=== PATIENT | male | born 1950 | race Caucasian/White ===

== ENCOUNTER 2016-08-25 06:38 | Day surgery (SDC) | payer OTHER, MEDICARE ==
[~2016-08-25] VITALS: Ht 176.5 cm; Wt 111.7 kg
[~2016-08-25 06:38] MED LIST: COUMADIN5 MG PO; DIABETA 5MG5 MG/TAB PO; GLYBURIDE MICRON3 MG PO; HCTZ 25MG TAB25 MG PO; METFORMIN1000 MG PO; MOBIC15 MG PO; MULTIPLE VITAMI1 CAP PO; TENORMIN 5050 MG/TAB PO; TYLENOL 325MG325 MG PO; WARFARIN2 MG PO; ZESTRIL40 MG PO; ZOCOR40 MG PO
[2016-08-25] MEDS ORDERED: MOBIC 7.5MG7.5 MG PO (06:56)
[2016-08-25] MEDS ORDERED: ASPIRIN 81M81 MG/TA2 PO (06:57)
[2016-08-25] MEDS ORDERED: FLOMAX 0.40.4 MG/CAP PO (06:57)
[2016-08-25] MEDS ORDERED: LIPITOR20 MG PO (06:58)
[2016-08-25] MEDS ORDERED: LANTUS100 U/ML SQ (07:03)
[2016-08-25] MEDS ORDERED: LUTEIN20 M1 PO (07:04)
[2016-08-25] MEDS ORDERED: D-2000 90 MG-201 TAB PO (07:04)
[2016-08-25] MEDS ORDERED: NIACIN 64 MG-501 TA1 PO (07:05)
[2016-08-25] MEDS ORDERED: ALPHA LIPOIC ACID PO (07:06)
[2016-08-25] MEDS ORDERED: OSTEO-BI-FLEX 21 TAB PO (07:06)
[2016-08-25] MEDS ORDERED: KRILL OIL 3001 EACH PO (07:06)
[2016-08-25 07:25] VITALS: BP 138/81; PULSE 48; TEMP 97.7
[2016-08-25 08:40] VITALS: BP 137/73; PULSE 55; TEMP 98.4
[2016-08-25 08:55] VITALS: BP 140/65; PULSE 54
[2016-08-25 09:10] VITALS: BP 112/58; PULSE 47
== END 2016-08-25 09:30 | disposition home or self-care (01) ==
LOC: SDCO 06:38
DX: Z86.010 Personal history of colon polyps (principal); D12.5 Benign neoplasm of sigmoid colon; K63.5 Polyp of colon; E11.9 Type 2 diabetes mellitus without complications; Z79.4 Long term (current) use of insulin; I10 Essential (primary) hypertension; E78.00 Pure hypercholesterolemia, unspecified; K64.0 First degree hemorrhoids
CPT/HCPCS: OP; J2250; J3010; J7030

== ENCOUNTER 2021-04-29 19:51 | Emergency (ER) | payer MEDICARE, OTHER ==
[~2021-04-29] VITALS: Ht 175.3 cm; Wt 110.5 kg
[~2021-04-29 19:51] MED LIST changes: +ADALAT CC60 MG PO; +ALPHA LIPOIC ACID PO; +ASPIRIN 81M81 MG/TA2 PO; +CEPHALEXIN500 M1 PO; +D-2000 90 MG-201 TAB PO; +FLOMAX 0.40.4 MG/CAP PO; +KRILL OIL 3001 EACH PO; +LANTUS100 U/ML SQ; +LIPITOR20 MG PO; +LUTEIN20 M1 PO; +MICARDIS40 MG PO; +MOBIC 7.5MG7.5 MG PO; +NIACIN 64 MG-501 TA1 PO; +OSTEO-BI-FLEX 21 TAB PO; +TRULICITY1.5 MG/0.5 SQ
[2021-04-29 20:51] LABS: COLLECTION METHOD CLEAN CATCH
[2021-04-29 21:11] LABS: MUCOUS Present (NOT PRESENT); PH 5 (5-8); SQUAMOUS EPITHELIAL None Seen /hpf (0-10); URINE APPEARANCE Hazy (CLEAR/HAZY); URINE BACTERIA Rare /hpf (NONE SEEN); URINE BILIRUBIN Negative (NEGATIVE); URINE BLOOD 1+ (NEGATIVE); URINE COLOR Yellow (YELLOW); URINE GLUCOSE 2+ (NEGATIVE); URINE KETONE Trace (NEGATIVE); URINE LEUKOCYTE ESTERASE 3+ (NEGATIVE); URINE NITRATE Negative (NEGATIVE); URINE PROTEIN(semi-quant) 1+ (NEGATIVE); URINE UROBILINOGEN Negative (NEGATIVE)
[2021-04-29] MEDS ORDERED: OMNICEF 300MG300 MG PO (21:22)
[2021-04-29 22:34] VITALS: BP 135/69; PULSE 75; TEMP 98.6
== END 2021-04-29 22:34 | disposition home or self-care (01) ==
LOC: COL.ER 19:51
PROVIDERS: Physician Assistant
DX: N30.91 Cystitis, unspecified with hematuria (principal); E11.40 Type 2 diabetes mellitus with diabetic neuropathy, unspecified; N40.0 Benign prostatic hyperplasia without lower urinary tract symptoms; Z79.899 Other long term (current) drug therapy
CPT/HCPCS: J0696

== ENCOUNTER 2021-05-16 07:07 | Emergency (ER) | payer MEDICARE, OTHER ==
[~2021-05-16] VITALS: Ht 175.3 cm; Wt 109.5 kg
[~2021-05-16 07:07] MED LIST changes: +OMNICEF 300MG300 MG PO
[2021-05-16 07:12] VITALS: TEMP 98
[2021-05-16 07:39] LABS: COLLECTION METHOD CLEAN CATCH
[2021-05-16 07:49] LABS: PH 5 (5-8); SQUAMOUS EPITHELIAL 0-2 /hpf (0-10); URINE APPEARANCE Turbid (CLEAR/HAZY); URINE BACTERIA Rare /hpf (NONE SEEN); URINE BILIRUBIN Negative (NEGATIVE); URINE BLOOD 3+ (NEGATIVE); URINE COLOR Amber (YELLOW); URINE GLUCOSE Negative (NEGATIVE); URINE KETONE Negative (NEGATIVE); URINE LEUKOCYTE ESTERASE 3+ (NEGATIVE); URINE NITRATE Negative (NEGATIVE); URINE PROTEIN(semi-quant) 2+ (NEGATIVE); URINE RBC >50 /hpf (0-2); URINE UROBILINOGEN Negative (NEGATIVE)
[2021-05-16] MEDS ORDERED: CIPRO 500MG TA500 MG PO (08:21)
[2021-05-16 08:35] VITALS: BP 165/95; PULSE 86
== END 2021-05-16 08:35 | disposition home or self-care (01) ==
LOC: COL.ER 07:07
PROVIDERS: Family Medicine
DX: N30.00 Acute cystitis without hematuria (principal); Z87.440 Personal history of urinary (tract) infections; Z87.891 Personal history of nicotine dependence

== ENCOUNTER 2021-08-15 17:51 | Emergency (ER) | payer MEDICARE, OTHER ==
[~2021-08-15] VITALS: Ht 175.3 cm; Wt 105.5 kg
[~2021-08-15 17:51] MED LIST changes: +CIPRO 500MG TA500 MG PO
[2021-08-15 17:56] VITALS: TEMP 99.1
[2021-08-15] MEDS ORDERED: CEPHALEXIN500 M1 PO (18:31)
[2021-08-15] MEDS ORDERED: BACTRIM DS 8001 TAB PO (18:31)
[2021-08-15 20:07] VITALS: BP 188/83; PULSE 65
[2021-08-16] MEDS ORDERED: XARELTO STARTER20 MG PO (08:53)
== END 2021-08-15 20:16 | disposition home or self-care (01) ==
LOC: COL.ER 17:51
DX: L03.116 Cellulitis of left lower limb (principal); R60.0 Localized edema; Z28.310 Unvaccinated for COVID-19
CPT/HCPCS: J1650

== ENCOUNTER 2021-09-12 18:14 | Emergency (ER) | payer MEDICARE, OTHER ==
[~2021-09-12] VITALS: Ht 175.3 cm; Wt 105.5 kg
[~2021-09-12 18:14] MED LIST changes: +BACTRIM DS 8001 TAB PO; +XARELTO STARTER20 MG PO
[2021-09-12 18:46] VITALS: TEMP 97.7
[2021-09-12 19:53] LABS: BASO % 0.5 % (0.0-2.0); EOS % 11.8 % (0.0-4.0); GRAN # 4.7 K/mm3 (1.4-6.5); GRAN % 56.1 % (42.2-75.2); HEMATOCRIT 42.5 % (42.0-52.0); HEMOGLOBIN 14.5 g/dl (13.5-18.0); LYMPH # 1.9 K/mm3 (1.2-3.4); MEAN CELL VOLUME 87 fl (80.0-100.0); MEAN CORPUSCULAR HEMOGLOBIN 30 pg (27-31); MEAN CORPUSCULAR HGB CONC 34 g/dl (33.0-37.0); MEAN PLATELET VOLUME 10.4 fl (7.4-10.4); MONO # 0.7 K/mm3 (0.1-0.6); MONO % 8.1 % (1.7-9.3); PLATELET COUNT 184 K/mm3 (130-400); RED BLOOD COUNT 4.89 M/mm3 (4.20-5.60); REDCELL DISTRIBUTION WIDTH-CV 13.3 % (11.5-14.5)
[2021-09-12 20:07] LABS: ALBUMIN 3.6 gm/dL (3.4-4.8); CREATININE, serum 1.05 mg/dL (0.72-1.25); PHOSPHOROUS 3.2 mg/dL (2.3-4.7); POTASSIUM 4.3 mmol/L (3.5-4.5)
[2021-09-12 20:57] VITALS: BP 178/88; PULSE 68
== END 2021-09-12 20:59 | disposition home or self-care (01) ==
LOC: COL.ER 18:14
PROVIDERS: Emergency Medicine
DX: I87.2 Venous insufficiency (chronic) (peripheral) (principal); Z86.718 Personal history of other venous thrombosis and embolism; Z79.01 Long term (current) use of anticoagulants

== ENCOUNTER → 2022-03-12 | Outpatient (CLI) | payer MEDICARE, OTHER | LOC: COL.VAS 08:44 | DX: I82.432 Acute embolism and thrombosis of left popliteal vein (principal) ==

== ENCOUNTER 2023-10-22 21:03 | Emergency (ER) | payer MEDICARE, OTHER ==
[~2023-10-22] VITALS: Ht 172.7 cm; Wt 109.5 kg
[2023-10-22 21:10] VITALS: TEMP 97.9
[2023-10-22 21:47] LABS: BASO # 0.1 K/mm3 (0.0-0.2); BASO % 0.5 % (0.0-2.0); EOS # 0.2 K/mm3 (0.0-0.7); EOS % 2.5 % (0.0-4.0); GRAN # 6.4 K/mm3 (1.4-6.5); GRAN % 65.9 % (42.2-75.2); HEMATOCRIT 47.9 % (42.0-52.0); HEMOGLOBIN 16.3 g/dl (13.5-18.0); LYMPH # 2.1 K/mm3 (1.2-3.4); LYMPH % 21.6 % (20.0-51.0); MEAN CELL VOLUME 89 fl (80.0-100.0); MEAN CORPUSCULAR HEMOGLOBIN 30 pg (27-31); MEAN CORPUSCULAR HGB CONC 34 g/dl (33.0-37.0); MEAN PLATELET VOLUME 10.4 fl (7.4-10.4); MONO # 0.9 K/mm3 (0.1-0.6); MONO % 9.2 % (1.7-9.3); PLATELET COUNT 178 K/mm3 (130-400); RED BLOOD COUNT 5.36 M/mm3 (4.20-5.60); REDCELL DISTRIBUTION WIDTH-CV 13.2 % (11.5-14.5)
[2023-10-22] MEDS ORDERED: Iohexol 350 - 100 ML VIAL IV ONE (21:51)
[2023-10-22] MEDS ORDERED: NS 64 ML IV SCH (21:51)
[2023-10-22 21:52] LABS: INR 1.2 (0.8-3.0); PROTHROMBIN TIME 13.3 SECONDS (9.7-12.8)
[2023-10-22 21:55] LABS: PARTIAL THROMBOPLASTIN TIME 36.9 SECONDS (26.0-37.0)
[2023-10-22 22:04] LABS: ALBUMIN 4.3 g/dL (3.4-4.8); BILIRUBIN,TOTAL 0.4 mg/dL (0.2-1.2); CALCIUM 9.4 mg/dL (8.4-10.2); CREATININE, serum 1.34 mg/dL (0.72-1.25); POTASSIUM 4.4 mEq/L (3.5-4.5); TOTAL PROTEIN 7.4 g/dl (6.2-8.1)
[2023-10-22 22:13] LABS: TROPONIN-I 1.699 ng/mL (0.00-0.033)
[2023-10-22] MEDS ORDERED: Clopidogrel 300 MG DOSE (75 mg x 4 tabs) PO ONE (22:30)
[2023-10-22] MEDS ORDERED: niCARdipine 200 ML IV ONE (22:45)
[2023-10-22] MEDS ORDERED: Heparin/D5W 250 ML IV SCH (22:45)
[2023-10-22 23:48] VITALS: BP 157/76; PULSE 66
== END 2023-10-22 23:48 | disposition short-term general hospital (02) ==
LOC: COL.ER 21:03
PROVIDERS: Emergency Medicine
DX: I21.4 Non-ST elevation (NSTEMI) myocardial infarction (principal); I10 Essential (primary) hypertension; I82.402 Acute embolism and thrombosis of unspecified deep veins of left lower extremity; Z79.01 Long term (current) use of anticoagulants
CPT/HCPCS: J1644; J2404; Q9967

== ENCOUNTER 2023-11-06 10:20 | Inpatient (IN) | payer MEDICARE, OTHER ==
[~2023-11-06] VITALS: Ht 175.3 cm; Wt 108.3 kg
[2023-11-06 15:50] VITALS: BP 113/75; PULSE 94; TEMP 97.9
[2023-11-06] MEDS ORDERED: TYLENOL 500MG500 MG PO (16:12)
[2023-11-06] MEDS ORDERED: PACERONE200 MG PO (16:13)
[2023-11-06] MEDS ORDERED: PLAVIX 75MG TAB75 MG PO (16:13)
[2023-11-06] MEDS ORDERED: NEURONTIN100 MG/CAP PO (16:14)
[2023-11-06] MEDS ORDERED: Polyethylene Glycol 3350 17 GM PDS PO PRN (16:15)
[2023-11-06] MEDS ORDERED: Naloxone 0.4 MG/ML VIAL IV PRN (16:15)
[2023-11-06] MEDS ORDERED: Acetaminophen 325 MG TAB PO PRN (16:15)
[2023-11-06] MEDS ORDERED: Sennosides/Docusate 8.6-50 MG TAB PO PRN (16:15)
[2023-11-06] MEDS ORDERED: Docusate Sodium 100 MG CAP PO PRN (16:15)
[2023-11-06] MEDS ORDERED: HUMALOG PEN100 U/ML SQ ×2 (16:16→16:17)
[2023-11-06] MEDS ORDERED: TOPROL XL 25MG25 MG PO (16:18)
[2023-11-06] MEDS ORDERED: BENICAR5 MG PO (16:19)
[2023-11-06] MEDS ORDERED: ELIQUIS 5MG PO (16:19)
[2023-11-06] MEDS ORDERED: MUCINEX 60600 MG/TA1 PO (16:20)
[2023-11-06] MEDS ORDERED: CRESTOR20 MG PO (16:21)
[2023-11-06] MEDS ORDERED: VITAMIN C500 MG PO (16:22)
[2023-11-06] MEDS ORDERED: Insulin Lispro (HumaLOG) SQ SCH ×2 (16:30→17:00)
--- NOTE | 2023-11-06 16:30 | NUR ---
Patient admitted to IPR, transported from [facility]. Patient awake, alert and oriented. Currently denies pain, shortness of breath or nausea. Weak when standing, max x2 assist with gait belt and sternal precautions when stand/pivoting from wheelchair to bed. Midline incision to chest, C/D/I. Oriented to room and typical plan in IPR. Pt verbalizes understanding. Bed in lowest position with call light within reach.
[2023-11-06] MEDS ORDERED: Dextrose (Glucose) 15 GM (4 x 3.75 GM) Chewable TABLET PACK PO PRN (17:00)
[2023-11-06] MEDS ORDERED: Glucagon 1 MG VIAL IM PRN (17:00)
[2023-11-06] MEDS ORDERED: Dextrose 50% Water 25 GM/50 ML SYRINGE IV PRN (17:00)
[2023-11-06 18:19] VITALS: BP 111/68; PULSE 69; TEMP 98.3
[2023-11-06 19:06] VITALS: BP_SYST 111
--- NOTE | 2023-11-06 20:53 | NUR ---
PT AWAKE AND RESTING IN BED. C/O FEELING FLUSHED. LUNG SOUNDS CLEAR IN ALL BENOIT. SPO2 93%. ROOM TEMP LOWERED AND ENCOURAGED INCENTIVE SPIROMETER USE. PT AMBULATED TO C X2 ASSIST/PIVOT WITH GAIT BELT. INCONTIENT OF BOWEL AND BLADDER. SCHEDULED MEDS GIVEN PER eMAR. PT DENIES PAIN. BED ALARM ON AND CALL LIGHT WITHIN REACH.
[2023-11-06] MEDS ORDERED: Apixaban 5 MG TABLET PO SCH (21:00)
[2023-11-06] MEDS ORDERED: guaiFENesin ER 600 MG **** subs to guaiFENesin 200 MG PO SCH (21:00)
[2023-11-06] MEDS ORDERED: Amiodarone 200 MG TAB PO SCH (21:00)
[2023-11-06] MEDS ORDERED: Gabapentin 100 MG CAP PO SCH ×2 (21:00)
[2023-11-06] MEDS ORDERED: Insulin Glargine-ygfn (Lantus) SQ SCH (21:00)
[2023-11-06] MEDS ORDERED: Atorvastatin 40 MG TAB PO SCH (21:00)
[2023-11-06] MEDS ORDERED: guaiFENesin 200 MG TAB PO SCH (21:00)
[2023-11-06] MEDS ORDERED: Rosuvastatin 20 MG **** subs to Atorvastatin 40 MG PO SCH (21:00)
[2023-11-07] VITALS (9 sets, daily range): BP systolic 98–129; BP diastolic 58–78; PULSE 70–135; TEMP 97.3–98.4
--- NOTE | 2023-11-07 01:47 | NUR ---
PT C/O OF HIS HEART RACING. STATES FLUSHED FEELING FROM EARLIER HAS RESOLVED. BP 98/58 AND HR 130. NOTIFIED SYDNI DELGADO NP OF PT STATUS. NEW ORDERS FOR EKG.
[2023-11-07] MEDS ORDERED: Furosemide 40 MG/4 ML VIAL IV ONE (02:15)
[2023-11-07 02:29] LABS: MEAN CELL VOLUME 92 fl (80.0-100.0); MEAN CORPUSCULAR HEMOGLOBIN 29 pg (27-31); MEAN CORPUSCULAR HGB CONC 32 g/dl (33.0-37.0); MEAN PLATELET VOLUME 9.9 fl (7.4-10.4); PLATELET COUNT 262 K/mm3 (130-400); REDCELL DISTRIBUTION WIDTH-CV 14.1 % (11.5-14.5)
[2023-11-07 02:36] LABS: HEMATOCRIT 31.1 % (42.0-52.0)
[2023-11-07 02:50] LABS: ALBUMIN 2.6 g/dL (3.4-4.8); BILIRUBIN,TOTAL 0.9 mg/dL (0.2-1.2); CREATININE, serum 1.04 mg/dL (0.72-1.25); MAGNESIUM 1.9 mg/dL (1.6-2.6); TOTAL PROTEIN 6.1 g/dl (6.2-8.1)
[2023-11-07 03:34] LABS: BAND 2 % (0-10); EOSINOPHIL 1 % (0-4); LYMPHOCYTE 17 % (20.0-51.0); NEUTROPHILS 74 % (42.0-75.2); PLATELET ESTIMATE NORMAL (NORMAL)
[2023-11-07 03:35] LABS: HYPOCHROMIA 1+; OVALOCYTES 1+
--- NOTE | 2023-11-07 06:06 | NUR ---
EKG SHOWED SINUS TACHYCARDIA. CXR DONE. TELEMETRY PLACED. BLOOD DRAWN FOR LAB ORDERS. RESULTS IN CHART. IV STARTED IN LEFT FOREARM. ONE TIME DOSE OF LASIX GIVEN. PT HAD ~500ML UOP. PT BEGAN TO C/O 10/10 LEFT HEEL PAIN R/T NEUROPATHY. PRN TYLENOL GIVEN. PT CONTINUED TO C/O PAIN AND STATES THAT HE CAN'T SLEEP. PT SAYS EVERY TIME HE CLOSES HIS EYES HE FEELS LIKE HE IS SUFFOCATING AND HAS TO WAKE UP. PT LOOKS TO BE MORE ANXIOUS. NOTIFIED SYDNI DELGADO NP OF PT STATUS. NEW ORDERS FOR RT TO EVAL NEED FOR CPAP/BIPAP. BIPAP IN PLACE. PT STATES HE IS FEELING LESS "SUFFOCATED". RESP RATE 22. PT SLEEPING. BED ALARM ON AND CALL LIGHT WITHIN REACH. BED IN LOWEST POSITION.
--- NOTE | 2023-11-07 06:08 | NUR ---
RT CALLED BY RN AT AROUND 0130 STATING PT HAS AN EKG ORDER. RT NOTIFIED LATER BY RN THAT A CPAP ORDER HAS BEEN ISSUED FOR PT. RT IN TO ASSESS PT. PT ON RA SATTING 97% AND APPEARS ANXIOUS. BS CLEAR T/O. PT A LITTLE TACHYPNIEC BUT OTHERWISE IN NO RESPIRATORY DISTRESS. PT STATES HE FEELSL OSWALDO HE'S SUFFOCATING AND CAN'T TAKE A BREATH IN. PT PLACED ON BIPAP ON CHARTED SETTINGS. PT STATES HE FEELS BETTER AND CAN "FINALLY TAKE A BREATH IN".
--- NOTE | 2023-11-07 07:15 | NUR ---
PT ON ROOM AIR SITTING IN CHAIR WAITING FOR BREAKFAST. PT IN NO DISTRESS AND FEELING MUCH BETTER. SPO2 95% BIPAP OFF.
[2023-11-07] MEDS ORDERED: Ascorbic Acid 500 MG TAB PO SCH (09:00)
[2023-11-07] MEDS ORDERED: Lutein 20 MG CAP PO SCH (09:00)
[2023-11-07] MEDS ORDERED: Clopidogrel 75 MG TAB PO SCH (09:00)
[2023-11-07] MEDS ORDERED: Multivitamin TAB PO SCH (09:00)
[2023-11-07] MEDS ORDERED: Influenza Virus Vaccine, Hi-Dose Triv '24-25 (65 YR+) 0.5 ML SYRINGE IM SCH (09:00)
--- NOTE | 2023-11-07 09:26 | NUR ---
PT SITTING UP IN CHAIR, ALERT AND ORIENTEDX4. ASSESSED PT. RATES PAIN 5/10 IN THE LEFT FOOT. HAS SOME RIGHT SIDED WEAKNESS.GAVE MORNING MEDS. NO OTHER COMPLAITNS AT THIS TIME. CALL LIGHT WITHIN REACH.
--- NOTE | 2023-11-07 11:21 | NUR ---
Data: Patient accepted spiritual care visit offered during Porter Luggage rounds. Patient had quad-bypass surgery. Patient is Holiness. His Window Decorator visited [facility] [place]; expects Window Decorator to continue to visit here. Assessment: Patient is more worried about his than himself. She requires the use of a wheelchair and home healthcare. He is also worried about his Son's spiritual well-being. Plan of Care: Porter Luggage provided supportive listening; affirmation of his concerns; and prayer. Patient thanked Porter Luggage for the visit. Chaplains will remain available as needed/required while Patient is admitted to this hospital.
--- NOTE | 2023-11-07 13:37 | NUR ---
TONYA along with Alina met with pt bedside to complete initial consult and discuss discharge planning. Pt said that pcp is no longer through [facility] and he uses Dr. Ean Clayton through [facility]. Pharmacy is typically through [facility] but emergent scripts he goes to [facility]. Pt has no DPOA and does not want to fill one out. LUCIA decision maker is [place] [phone]. Pt lives at home with spouse. Pt is the caregiver for the pt. Pt was in the hospital in [place] when his was also hospitalized. The was discharged and went home with home health. Pt unsure what home health company they choose. Pt uses no assistive devices at home but occasionally uses a cane. They have a shower chair and grab bars in the home mainly for the . Pt potentially interested in home health upon discharge but is looking for help with every days things. Pt stated that he would like help with transportation to and from appointments and cleaning around the house. MEN'S GOLF COACH provided resources for transportation and cleaning services in [place]. Pt has no concerns returning home and states it is his "safe haven". D/C: Home with spouse
--- NOTE | 2023-11-07 14:40 | NUR ---
PT REQUESTED TO BE PUT ON BIPAP. PT LYING IN BED APPEARING COMFORTABLE BUT STATED HE WAS FEELING A LITTLE SOB AND WANTED TO USE THE BIPAP AGAIN. BIPAP RESTARTED AND MASK ADJUSTED FOR COMFORT.
[2023-11-08] VITALS (8 sets, daily range): BP systolic 104–129; BP diastolic 58–75; PULSE 78–92; TEMP 97.3–98.6
--- NOTE | 2023-11-08 05:21 | NUR ---
THIS RT CALLED BY DONALD KELLY STATING THAT PT IS COMPLAINING THAT HE IS SOB AND CAN'T SEEM TO BREATHE.PT REFUSED TO GO ON CPAP. THIS RT PLACED PT ON 2L NC FOR COMFORT. SPO2 98% HR 97.PT STATES HE FELT BETTER WITH THE OXYGEN.
--- NOTE | 2023-11-08 07:00 | NUR ---
Bedside report received from DONALD Tiwari. Pt resting in bed awake with no complaints. Call light within reach and fall precautions in place.
--- NOTE | 2023-11-08 08:17 | NUR ---
Pt awake in bed requesting to ambulate to bathroom. This nurse and PCT Willow assisted pt to bathroom with walker and then to recliner with no complications. Pt tolerated well with no complaints. Shift assessment completed. VSS. Pt denies pain rating 0/10. INT to Lt forearm patent with no swelling, redness, or drainage. Incision to middle of chest wall CDI with edges well approximated. Telemetry in place. Pt has no reqest at this time. Call light within reach and fall precautions in place.
[2023-11-08] MEDS ORDERED: hydrOXYzine HCl 25 MG TAB PO PRN ×3 (09:30→13:51)
[2023-11-08] MEDS ORDERED: hydrOXYzine HCl 25 MG TAB PO ONE (11:00)
[2023-11-08] MEDS ORDERED: Furosemide 40 MG/4 ML VIAL IV ONE (11:15)
--- NOTE | 2023-11-08 13:36 | NUR ---
This nurse talked with Pt regarding increased anxiety. Pt reports he has been feeling very anxious about where his next breath was coming from. Per Pt, feels himself getting worked up during the day and being unable to breath. Talked with Pt about box breathing and controling his breath by drawing it with his finger. Pt accurately demonstrated and stated he felt much better after completely the exercise. Pt also mentioned he feels anxious about falling asleep as the BiPAP fights his breath and "chokes [Pt] with air." Pt stated RT changed the settings last night as it got really bad. Talked with Pt and Pt seemed to be more comfortable regarding tonight. No further needs. Call light in reach and bed alarm on.
--- NOTE | 2023-11-08 14:12 | NUR ---
Pt has complaints of anxiety and states that he feels anxious about wearing the bipap during the night. DONALD Jorge sat with pt and educated about breathing techniques to calm anxiety. Pt agreeable to try breathing exercises to aide with calming his anxiety. Pt reassessed and continues to feel anxious requesting to see hospitalist. This nurse notified Dr. Landry about pt anxiousness and request. Dr. Landry stated that she would adjust PRN hydroxyzine and to administer PRN medication.
--- NOTE | 2023-11-08 19:30 | NUR ---
Patient resting in bed. States he has a headache rating his pain at 5/10, prn tylenol given. States he is feeling anxoius due to everytime he tries to go to sleep he jolts awake thinking he is going to stop breathing. Unable to give PRN anxiety medication at this time, patient states he can wait until it can be given. After talking with the patient he stated that just talking helped his anxiety a bit. Assessment complete. IV in left forearm flushes easiliy without complications. Incision to chest is CDI. Needs met at this time. Call light and personal items in reach. Bed in low position and bed alarm on.
[2023-11-08] MEDS ORDERED: Melatonin 3 MG TAB PO SCH (21:00)
--- NOTE | 2023-11-08 22:21 | NUR ---
Hospitalist Arlen called and notifed of 6-10 second run of A-fib and flipped back to NSR. Patient having an anxiety attack at this time and given anxiety meds about 10-15 minutes prior along with the rest of his evening meds.
--- NOTE | 2023-11-08 22:48 | NUR ---
2202-PT STATED HE DID NOT WANT TO WEAR CPAP AT THIS TIME.
[2023-11-09] VITALS (11 sets, daily range): BP systolic 95–123; BP diastolic 61–76; PULSE 62–84; TEMP 97.5–98.6
[2023-11-09] MEDS ORDERED: Furosemide 20 MG TAB PO SCH (09:00)
--- NOTE | 2023-11-09 12:58 | NUR ---
Pt rang stating that he having an anxiety attack, states he may pass out. Pt was okay during noon medication pass with no complaints. PT stated that it came on all of a sudden and then seems he can't catch his breath. Pt is sitting up in the chair and does appear calm at this time. PRN atarax given. Pt aware of his therapy at 1300. No other needs verbalized
--- NOTE | 2023-11-09 13:50 | NUR ---
Pt reports that he is doing better, no complaints at this time. Pt sitting up in the chair
--- NOTE | 2023-11-09 14:00 | NUR ---
Admission QIM scores were reviewed by the team. Code of 2 chosen for toileting hygiene was determined by team discussion to be the most usual performance for this patient during the discharge assessment period. Code of 2 chosen for toilet transfers was determined by team discussion to be the most usual performance for this patient during the discharge assessment period. Code of 2 chosen for lower body dressing was determined by team discussion to be the most usual performance before interventions for this patient during the assessment period.--Brenda Hilario, PD
--- NOTE | 2023-11-09 14:20 | NUR ---
Pt recently called out stating that he starting to feel short of breath now. Pt sitting up in the chair, appears to be doing okay. Pt mentioned something about the rate on his pacemaker being changed recently and feels the issues have started then. I did notify Dr Blackwell of this.
--- NOTE | 2023-11-09 14:30 | NUR ---
Pt rang his call light again stating that he is getting worse. Pt continues to sit up in the chair, appears okay. Pt respirations are 30 at this time. BP 101/58, pulse 69 and O2 97% on room air. Offered to assist him in to the bed, he stated he feels better sitting up. Informed him I would update Dr Blackwell
--- NOTE | 2023-11-09 14:40 | NUR ---
Building Maintenance Worker met with patient to check in and introduce herself. 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 Patient stated his son, Guillermo is with her right now and is arranging private duty services for her. Patient stated he wants to return home at time of discharge and do outpatient cardiac rehab.
--- NOTE | 2023-11-09 15:03 | NUR ---
Pt reports that he does not feel that he can take any medications right now, states he doesn't think he can swallow anything. Pt is able to carry a conversation without any difficulty. Pts legs are restless at this time.
[2023-11-09] MEDS ORDERED: clonazePAM 0.5 MG TAB PO SCH (15:25)
[2023-11-09] MEDS ORDERED: Amiodarone 200 MG TAB PO SCH (21:00)
--- NOTE | 2023-11-09 21:00 | NUR ---
Patient resting in bed. Denies any pain at this time. Needs met. Assessment complete. IV in left forearm flushes easily without complications. Call light and personal items in reach. Bed in low position and bed alarm on.
[2023-11-10] VITALS (11 sets, daily range): BP systolic 109–126; BP diastolic 67–76; PULSE 69–92; TEMP 97.5–98.7
[2023-11-10] MEDS ORDERED: Melatonin 3 MG TAB PO SCH (02:15)
--- NOTE | 2023-11-10 09:30 | NUR ---
ase certified technician called to notify me of batteries on tele box needing changed. Batteries have been changed and tele is back up for the patient.
--- NOTE | 2023-11-10 10:38 | NUR ---
Pt a&ox4. VSS. Pt is on telemetry. Pt on 2L of oxygen via NC currently for comfort. Reports some heightened anxiety this morning. Scheduled meds administered and shift assessment complete. Incision on chest is open to air and edges are well approximated. Skin graft on L inner knee open to air and healing. TEDs on. No c/o pain at this time. No further needs at this time. Call light and personal belongings within reach. Chair alarm on.
--- NOTE | 2023-11-10 13:32 | NUR ---
Initial visit; Patient thanked Transmission Builder for looking in on him and offering God's blessings. Patient declined Spiritual Care.
--- NOTE | 2023-11-10 15:35 | NUR ---
Was called by nurse of pt's anxiety increasing & requesting SW's assistance. Went to pt's room. Asked him to rate his anxiety on scale of 1-10 & was infomred a 5-6. Had him practice deep breathing technique w/ some visiualization. Pt was able to demonstrate & would almost nod off while he was closing his eyes & deep breathing. Asked again to rate his anxiety & was told 5. Talked about strategies of walking & asked if he wanted to go for a walk but stated he was very tired. Asked about getting in the w/c & going for a pa, which he was acceptable to. As we were strolling, asked pt questions which he answered. We went to the courtyard, where pt was happy w/ because he was able to be outside & get some fresh air. Pt commented while sitting there that the fall/water reminded him of growing up in [facility]. Provided education on recovery & pt volunteered information of his expections for his recovery & that he was expecting to be better by now. Provided pt w/ support & encouragement. We talked about being like our parents but different & have to have different goals. We also talked about goals on rehab being small for each day to work towards his bigger goal. Also found out pt likes music, so recommended w/ anxiety to try listening to music of his choice or sounds he finds relaxing. Will continue to follow & provide support.
--- NOTE | 2023-11-10 19:40 | NUR ---
Patient resting in chair. Denies any pain at this time. Son at bedside. Assissted patient into wheelchiar and to the sink so patient could shave. Needs met. Assessment complete. IV in left forearm flush easily without complications. Call light and personal items in reach.
[2023-11-10] MEDS ORDERED: Albuterol/Ipratropium 3 MG-0.5 MG/3 ML Neb Soln IH PRN (22:15)
[2023-11-11] VITALS (11 sets, daily range): BP systolic 114–124; BP diastolic 68–78; PULSE 58–72; TEMP 97.5–98.4
--- NOTE | 2023-11-11 04:25 | NUR ---
This RT called by RN at 351. Pt is anxious at this time, feels SOB. PRN duoneb cannot be given yet as it is too soon from the prior tx. RN placed pt on 2L. At 410 this RT went to pt's room. Pt resting in bed, on 2L NC saturations are 100%, HR 70, in no distres. While listening to breath sounds, pt fell back asleep. Breath sounds clear, no wheezing noted.
--- NOTE | 2023-11-11 08:00 | NUR ---
Pt a&ox4. States that he was not able to sleep well last night d/t anxiety. VSS. Pt is on tele. Pt has peripheral IV in LFA that is patent and intact. Pt currently eating breakfast in recliner. Pt is up with assist x1, walker, and GB. No c/o pain at this time. No c/o increasing anxiety at this time. Pt aware of therapy schedule for the day. Shift assessment complete and medications administered. Midline incision on chest is open to air and edges are well approximated. No supplemental oxygen being used at this time. No further needs at this time. Call light within reach and chair alarm on.
--- NOTE | 2023-11-11 10:30 | NUR ---
PT STATES THAT HE IS HAVING TROUBLES BREATHING AND FEELING SHORT OF BREATH. VS ARE WNL. HE STATES THAT HE IS HAVING AN ANXIETY ATTACK. PRN ANXIETY MED ADMINISTERED. STAYED WITH PT WHILE HE WAS FEELING THIS WAY AND HELPED HIM FOCUS ON HIS BREATHING AND TRY SOME DIFFERENT BREATHING EXERCISES. PT FELT A LITTLE BETTER AFTER THAT. STILL SAYS HE'S ANXIOUS.
--- NOTE | 2023-11-11 15:30 | NUR ---
Pt reported an "overwhelming feeling of anxiety" and c/o SOB. VS are WNL. Pt was taken outside to get some fresh air. Pt seems to be better after that.
--- NOTE | 2023-11-11 15:37 | NUR ---
Received request from JAYDE that pt would like to go for a pa. Upon entering the room, pt was working on getting into w/c w/ the nurse. Asked pt to rate his anxiety & stated prior to nurse coming in it was a 10 but after working w/ the nurse it went down to a 4. Took pt to the courtyard in the w/c & let him enjoy the sounds & sights. Also took the opportunity to discuss his anxiety. He continues to state that he is not thinking of anything when the anxiety starts. Provided him an observation of the anxiety seems to be happening while he is alone. He was a little surprised w/ this & acknowledged the observation. Discussed w/ him his symptoms of feeling afraid, becoming anxious, & issues w/ sleeping are possibly reactions to the stress/trauma of having a heart attack, having to undergo open heart surgery, & then having a stroke afterwards. We discussed strategies he can try to see if this helps during his episodes. Upon leaving the courtyard, pt rated his anxiety as 0.
--- NOTE | 2023-11-11 16:18 | NUR ---
Body Cleaner met with patient to present and review team conference notes. When SW arrived, patient stated he felt he was having an anxiety attack so SW sat with him to talk for a bit. Patient stated he's been told that this anxiety might be caused by the trauma he has experienced recently with his medical conditions. SW offered support and inquired about any past experiences with anxiety. Patient stated these anxiety attacks were new for him. SW discussed possibly seeing a therapist post discharge and patient was open to getting some mental health resources. SW discussed with patient a tentative discharge date of , 11/19/23 with Home Health services. SW provided team conference notes and Medicare.gov list of agencies. Patient expressed some reservation about the discharge date and does not feel ready. Patient also felt like he would need double the private duty services at home as he will need as much assistance as his needs. SW again encouraged patient that we are tentatively planning for , but would continue to monitor his progress. JAYDE discussed scheduling a family meeting and patient advised the best person to call is his son, Red. JAYDE contacted Red and scheduled a meeting for tomorrow at 1300.
--- NOTE | 2023-11-11 21:00 | NUR ---
Patient resting in chair. Denies any pain at this time. Assissted patient to bathroom and back to bed. Needs met. Assessment complete. IV in left forearm easily without complications. Call light and personal items in reach. Bed in low position and bed alarm on.
[2023-11-12] VITALS (11 sets, daily range): BP systolic 106–130; BP diastolic 60–79; PULSE 69–83; TEMP 97.4–98.6
[2023-11-12 07:06] LABS: BASO % 0.4 % (0.0-2.0); EOS # 0.2 K/mm3 (0.0-0.7); EOS % 2.7 % (0.0-4.0); GRAN # 5.6 K/mm3 (1.4-6.5); GRAN % 72.3 % (42.2-75.2); LYMPH # 1.2 K/mm3 (1.2-3.4); LYMPH % 15.3 % (20.0-51.0); MEAN CELL VOLUME 94 fl (80.0-100.0); MEAN CORPUSCULAR HGB CONC 31 g/dl (33.0-37.0); MONO # 0.7 K/mm3 (0.1-0.6); MONO % 8.7 % (1.7-9.3); PLATELET COUNT 300 K/mm3 (130-400); RED BLOOD COUNT 3.05 M/mm3 (4.20-5.60); REDCELL DISTRIBUTION WIDTH-CV 14.6 % (11.5-14.5)
[2023-11-12 07:11] LABS: HEMATOCRIT 28.7 % (42.0-52.0); HEMOGLOBIN 8.9 g/dl (13.5-18.0); MEAN CORPUSCULAR HEMOGLOBIN 29 pg (27-31)
[2023-11-12 07:26] LABS: CALCIUM 8.2 mg/dL (8.4-10.2); CREATININE, serum 1.01 mg/dL (0.72-1.25); POTASSIUM 4.2 mEq/L (3.5-4.5)
--- NOTE | 2023-11-12 08:40 | NUR ---
PT UP TO RECLINER FOR BREAKFAST. AM MEDS GIVEN. BREATHING TX COMPLETE BY RT PER PT REQUEST. PT C/O INCREASING ANXIETY.PROVIDED THERAPUTIC COMUNICATION. REVIEWED CARE PLAN FOR THE DAY. PT VERBALIZED UNDERSTANDING, INCISION TO CHEST CDI.STERI STRIPS IN PLACE.
--- NOTE | 2023-11-12 16:26 | NUR ---
Confidential Secretary participated in patient's family meeting which included patient's home, Jennifer and son, Red at bedside. ROHINI Gutierrez Director opened the meeting followed by medical update from Dr. Blackwell. PT/OT provided update on progress and recommendations. The team discussed patient's anxiety and recent medication changes. Tentative discharge date is set for , 11/19/23. Patient's son, Red stated they have been in contact with [facility] and would like to have referral sent there. JAYDE followed up with patient later to provide mental health resources and benefits of therapy. JAYDE Ryan faxed referral to [facility] and JAYDE spoke with Oscar from [facility] who will visit patient at bedside.
[2023-11-12] MEDS ORDERED: LORazepam 0.5 MG TAB PO ONE (22:45)
[2023-11-13] VITALS (11 sets, daily range): BP systolic 106–116; BP diastolic 63–75; PULSE 68–73; TEMP 97.5–98.4
--- NOTE | 2023-11-13 00:35 | NUR ---
ASSESSMENT COMPLETED EARLIER. MEDICATIONS ADMINISTERED PER EMAR. PT GOT UP AND USED THE BATHROOM. HAD A BM AND VOIDED. PT WAS AMBULATED BACK TO BED. CALL LIGHT IS WITHIN REACH. PT REQUESTS MEDICATION FOR ANXIETY - ADMINISTERED PER EMAR. PT CALLS LATER STATING THAT HIS ANXIETY IS STILL BAD AND NEEDS SOMETHING. THIS NURSE TRIES TO TELL PT TO "TAKE DEEP BREATHS". PT STATES THAT IS NOT WORKING. THIS NURSE TRIES TO USE GUIDED IMAGERY WITH PT BUT STILL DOES NOT WORK. SAMUEL DELGADO NOTIFIED AND MEDICATIONS WERE ADMINISTERED PER PHYSICIAN ORDERS. PT IS NOW RELAXED IN BED. NO COMPLAINTS AT THIS TIME. CALL LIGHT IS WITHIN REACH. BED IN LOWEST POSITION.
--- NOTE | 2023-11-13 06:35 | NUR ---
awake resting in bed, c/o some neuropathy pain and feeling anious, bedside shift report received from DONALD Panchal
--- NOTE | 2023-11-13 08:00 | NUR ---
sitting up in chair and has had breakfast, tolerated well, full assessment completed, see interventions for further info,
--- NOTE | 2023-11-13 08:20 | NUR ---
physical therapy in and working with patient
--- NOTE | 2023-11-13 09:15 | NUR ---
returned to room with physical therapy, sitting in regular straight back chair per his request
--- NOTE | 2023-11-13 11:45 | NUR ---
had shower with occupational therapy, dresing at bottom of incision became wet and is removed, may still have a small amount of drainage to incision and new telfa dressing placed
--- NOTE | 2023-11-13 13:55 | NUR ---
off unit with therap
[2023-11-13] MEDS ORDERED: Gabapentin 100 MG CAP PO SCH (14:00)
--- NOTE | 2023-11-13 14:05 | NUR ---
bedside shift report given to LJ Soto
--- NOTE | 2023-11-13 14:24 | NUR ---
Sat Instructor met with patient to check in before the weekend. He stated he had a bad night, but things were starting to get somewhat better. SW told patient that Oscar with [facility] was going to visit him this morning.
--- NOTE | 2023-11-13 14:28 | NUR ---
SHIFT ASSESSMENT COMPLETED AT THIS TIME. PT A&OX4. PT RESTING IN CHAIR UPON ENTRANCE. PT DENIES PAIN, SOB, AND NAUSEA. SCHEDULED MEDICATIONS ADMINISTERED AT THIS TIME WIHTOUT COMPLICATIONS. FALL PRECAUTIONS IN PLACE. CALL LIGHT WITHIN REACH. NO FURTHER NEEDS AT THIS TIME.
--- NOTE | 2023-11-13 19:29 | NUR ---
RECIEVED BEDSIDE SHIFT REPORT. PT RESTING IN CHAIR. HAS NO COMPLAINTS AT THIS TIME.
--- NOTE | 2023-11-14 00:18 | NUR ---
ASSESSMENT COMPLETED EARLIER. MEDICATIONS ADMINISTERED PER EMAR. PT GOT UP AND WENT TO BATHROOM WITH THIS NURSE AND MILA MUSTAFA AND USED URINAL AND VOIDED 175 ML OF YELLOW URINE. PT WAS THEN AMBULATED BACK TO BED. DRESSING WAS CHANGED. PREVIOUS DRESSING HAD SOME DRAINAGE ON IT. DRESSING IS NOW CDI. PT DENIES N/V AND SOA. PT IS A/OX4. VSS. CALL LIGHT AND PERSONAL BELONGINGS ARE CURRENTLY IN REACH.
--- NOTE | 2023-11-14 04:38 | NUR ---
PT STATES HE IS STARTING TO FEEL SOA. THIS NURSE CHECKED O2 AND WAS AT 93% THIS NURSE APPLIED 1L O2 VIA NC. THIS NURSE BOOSTED PT UP IN BED. PT STATES HE IS FEELING BETTER AND O2 IS NOW AT 98%.
[2023-11-14 05:37] VITALS: BP 103/64; PULSE 69; TEMP 97.3
[2023-11-14 07:00] VITALS: BP_SYST 103
--- NOTE | 2023-11-14 08:00 | NUR ---
Pt a&ox4. VSS. Pt is currently up in chair eating breakfast before therapy. No c/o pain at this time. Pt is up with assist x1, walker, and gait belt. Shift assessment complete and meds administered. Incisions on upper abdomen covered with non adhesive gauze and paper tape d/t drainage. Midline chest incision is open to air and edges are well approximated. Skin graft site on L inner knee is open to air and edges are well approximated also. Denies any feelings of anxiety at this time. No further needs. Call light within reach.
[2023-11-14 18:29] VITALS: BP 126/75; PULSE 71; TEMP 97.5
[2023-11-14 19:00] VITALS: BP_SYST 126
--- NOTE | 2023-11-14 19:33 | NUR ---
RECEIVED CHANGE OF SHIFT REPORT FROM DAY SHIFT NURSE. PATIENT UP IN CHAIR, EXIT ALARM ON, CALL LIGHT WITHIN PATIENT'S REACH.
[2023-11-15 06:00] VITALS: BP 112/71; PULSE 72; TEMP 97.7
[2023-11-15 07:00] VITALS: BP_SYST 112
--- NOTE | 2023-11-15 07:22 | NUR ---
CHANGE OF SHIFT REPORT GIVEN TO DAY SHIFT NURSEALLISON.
--- NOTE | 2023-11-15 08:00 | NUR ---
Pt a&ox4. VSS. No c/o pain at this time. In bed resting. Shift assessment complete and medications administered. Pt is up with assist x1, walker, and gait belt. Pt on sternal precautions. No further needs at this time. Call light and personal belongings within reach.
[2023-11-15 18:10] VITALS: BP 119/71; PULSE 69; TEMP 97.7
[2023-11-15 19:25] VITALS: BP_SYST 119
--- NOTE | 2023-11-15 19:25 | NUR ---
RECEIVED CHANGE OF SHIFT REPORT FROM DAY SHIFT NURSE. PATIENT RESTING IN BED, EXIT ALARM SIPHONER LIGHT WITHIN PATIENT'S REACH.
[2023-11-16 06:00] VITALS: BP 120/71; PULSE 68; TEMP 97.4
--- NOTE | 2023-11-16 06:46 | NUR ---
CHANGE OF SHIFT REPORT GIVEN TO DAY SHIFT NURSEJUSTIN.
[2023-11-16 07:08] VITALS: BP_SYST 120
[2023-11-16 07:57] LABS: BASO % 0.7 % (0.0-2.0); EOS # 0.2 K/mm3 (0.0-0.7); EOS % 3.4 % (0.0-4.0); GRAN % 67.9 % (42.2-75.2); HEMOGLOBIN 10.8 g/dl (13.5-18.0); LYMPH # 1.1 K/mm3 (1.2-3.4); LYMPH % 18.1 % (20.0-51.0); MEAN CELL VOLUME 92 fl (80.0-100.0); MEAN CORPUSCULAR HEMOGLOBIN 29 pg (27-31); MEAN CORPUSCULAR HGB CONC 31 g/dl (33.0-37.0); MEAN PLATELET VOLUME 9.6 fl (7.4-10.4); MONO # 0.6 K/mm3 (0.1-0.6); MONO % 9.6 % (1.7-9.3); PLATELET COUNT 341 K/mm3 (130-400); RED BLOOD COUNT 3.73 M/mm3 (4.20-5.60); REDCELL DISTRIBUTION WIDTH-CV 14.9 % (11.5-14.5)
[2023-11-16 07:58] LABS: HEMATOCRIT 34.4 % (42.0-52.0)
[2023-11-16 08:09] LABS: CALCIUM 8.9 mg/dL (8.4-10.2); CREATININE, serum 1.05 mg/dL (0.72-1.25); POTASSIUM 4.7 mEq/L (3.5-4.5)
--- NOTE | 2023-11-16 08:47 | NUR ---
PT UP WITH THERAPY AFTER BREAKFAST. AM MEDS GIVEN ORDERED. PT TO CHAIR FOR BREAKFAST. PT DENIES NEEDS AT THIS TIME. AM MEDS GIVEN ORDERED. CABG WOUND HEALING YVETTE. VSS.
--- NOTE | 2023-11-16 14:01 | NUR ---
SW met with patient to introduce self and discuss approaching discharge. Patient voiced that they are still planning for him to discharge home with [facility]. He asked that SW call his or son to let them know the change in coverage. SW left message for to return call. Updated clinicals sent to [facility]. Discharge plan: Home with HH
[2023-11-16 18:17] VITALS: BP 113/67; PULSE 80; TEMP 97.5
[2023-11-16 18:40] VITALS: BP_SYST 113
[2023-11-17 05:39] VITALS: BP 106/65; PULSE 69; TEMP 97.4
[2023-11-17 07:00] VITALS: BP_SYST 106
--- NOTE | 2023-11-17 08:00 | NUR ---
Pt a&ox4. VSS. No c/o pain at this time. Currently in chair eating breakfast. Up w/ assist x1, walker, and gait belt. Shift assessment complete and medications administered. No feelings of anxiety this morning. Pt aware of therapy schedule. Call light within reach. No further needs at this time.
[2023-11-17 17:40] VITALS: BP 118/71; PULSE 70; TEMP 97.6
[2023-11-17 20:30] VITALS: BP_SYST 118
--- NOTE | 2023-11-17 21:38 | NUR ---
UPON SHIFT ASSESSMENT, PATIENT WAS AWAKE IN BEDSIDE RECLINER, HE IS A&O X 4 AND IN GOOD SPIRITS. BLLE 2+ EDEMA WITH IVET HOSE IN PLACE. VS ARE WNL AND PATIENT DENIES CHEST PAIN OR SOA, STATES HIS INSCISION SITE A LITTLE SORE. SURGICAL SITE ON CHEST IS WELL APPROXIMATED WITH GAUZE ON LOWER PORTION WHICH IS CDI. BG 189, 2 UNITS MID SLIDING SCALE INSULIN GIVEN. CALL LIGHT WITHIN REACH, BED ALARM ON.
--- NOTE | 2023-11-17 21:40 | NUR ---
DRESSING TO SMALL SKIN TEAR IN LT INNER ANKLE CHANGED WITH NON ADHERENT GAUZE AND PAPER TAPE. IVET HOSE REMOVED AND SCDs PLACED.
--- NOTE | 2023-11-18 01:48 | NUR ---
PATIENT RESTING WITH EYES CLOSED LAYING SUPINE. NO SIGNS OF DISTRESS. RR 14
[2023-11-18 05:53] VITALS: BP 109/66; PULSE 70; TEMP 97.4
[2023-11-18 07:04] VITALS: BP_SYST 109
--- NOTE | 2023-11-18 09:31 | NUR ---
PT UP TO CHAIR FOR BREAKFAST. EATING AND DRINKING NO N/V. PT DENIES NEEDS OR PAIN ON ASSESMENT. SLOW HALTING GAIT. WITH GAURD ASSIST.
--- NOTE | 2023-11-18 11:07 | NUR ---
DRESSING CHANGE COMPLETE. UPPER ABDOMEN 4X4 AND PAPER TAPE. LEFT ANKLE TELFA AND PAPER TAPE.
--- NOTE | 2023-11-18 13:37 | NUR ---
JAYDE and JAYDE Fuller attended clinical team conference. Discussed patient's progress with each therapy discipline and medical status. Patient is planned for discharge tomorrow, 11/18. JAYDE and JAYDE Fuller met with patient to discuss discharge and review notes from team conference. Patient voiced understanding of current status and agreement for discharge planned for tomorrow. Patient updated that [facility] has been confirmed for continued therapy at home. Patient denies any DME needs for discharge. Patient's son has arranged for paid CG at home for patient's through [facility]. JAYDE sent clinical updates to [facility] with notice of planned discharge for tomorrow. JAYDE reviewed Medicare IM form with patient. Patient voiced understanding and agreement with discharge. Patient signed form, original on chart, copy to patient. Discharge plan: Home with [facility]
--- NOTE | 2023-11-18 14:58 | NUR ---
Covered applicable modifiable risk factors including the following: tobacco cessation, HTN, hyperlipidemia, diabetes, overweight/obesity, sedentary lifestyle, and stress/depression. Patient verbalized understanding. Referral has been recieved from [facility] for Cardiac Rehab. Staff discussed holding off on scheduling and awaiting clearance from Home Health/Physical Therapy. Patient verbalizing understanding. Staff will follow up via phone after discharge.
[2023-11-18 18:05] VITALS: BP 121/72; PULSE 76; TEMP 98.3
[2023-11-18 19:55] VITALS: BP_SYST 121
--- NOTE | 2023-11-18 19:55 | NUR ---
UPON SHIFT ASSESSMENT, THEO (ELE), WAS IN BEDSIDE RECLINER SPEAKING TO FRIENDS ON THE PHONE. VS ARE WNL AND THEO EAGERLY AWAITS DISCHARGE TOMORROW. STERNAL INCISION SITE IS WELL APPROXIMATED AND DRESSING BELOW WHERE PREVIOUS DRAINAGE WAS NOTED IS NOW CDI. BLLE STILL EXHHIBIT 2+ EDEMA. THEO DENIES CHEST PAIN OR SOA. AMBULTED TO RESTROOM WITH STEADY GAIT WITH WALKER. VOICED CONCERNS OVER PHARMACY IN WHICH HIS PRESCRIPTIONS WILL BE FILLED AND NEEDS TO CHANGE THE LOCATION IT IS ON A INSTILLATION AND SON DOES NOT HAVE BASE PRIVILEDGES. WILL PASS TO DAY SHIFT. CALL LIGHT WITHIN REACH.
--- NOTE | 2023-11-19 03:08 | NUR ---
PATIENT RESTING WITH EYES CLOSED, SUPINE. NO SIGNS OF DISTRESS NOTED.
--- NOTE | 2023-11-19 05:15 | NUR ---
CALLED TO PATIENT ROOM. PATIENT C/O BLLE NEUROPATHIC PAIN. ADVISED PATIENT IVET HOSE SHOULD BE REMOVED BEFORE BED, PATIENT AGREEABLE TO REMOVAL OF SCDs AND TEDHOSE. HEELS FLOATED ON PILLOW. VISUAL ASSESSMENT NOTED BLLE DISCOLORATION AND 2+ EDEMA IN FEET, PEDAL PULSES PRESENT BUT DIFFICULT TO FIND. PATIENT STATED INSTANT RELIEF OF PAIN WITH REMOVAL OF IVET HOSE, "THAT FEELS SO MUCH BETTER." PAIN RESOLVING, CALL LIGHT WITHIN REACH, BED ALARM ON.
[2023-11-19 05:57] VITALS: BP 118/74; PULSE 71; TEMP 97.5
[2023-11-19 07:00] VITALS: BP_SYST 118
--- NOTE | 2023-11-19 08:00 | NUR ---
Pt a&ox4. VSS. No c/o pain at this time. Pt ready to go home today. Shift assessment complete and medications administered. Pt is up w/ assist x1, walker, and gait belt. No further needs at this time. Call light and personal belongings within reach.
[2023-11-19] MEDS ORDERED: ELIQUIS 5MG PO (08:20)
[2023-11-19] MEDS ORDERED: PLAVIX 75MG TAB75 MG PO (08:20)
[2023-11-19] MEDS ORDERED: CRESTOR20 MG PO (08:21)
[2023-11-19] MEDS ORDERED: CORDARONE200 MG/TAB PO (08:21)
[2023-11-19] MEDS ORDERED: TOPROL XL 25MG25 MG PO (08:22)
[2023-11-19] MEDS ORDERED: LEXAPRO 5MG5 MG PO (08:23)
[2023-11-19] MEDS ORDERED: NEURONTIN100 MG/CAP PO (08:23)
[2023-11-19] MEDS ORDERED: LASIX 20MG TABL20 MG PO (08:23)
[2023-11-19] MEDS ORDERED: KLONOPIN 0.5MG0.5 MG PO ×2 (08:26→09:28)
--- NOTE | 2023-11-19 10:48 | NUR ---
JAYDE received call from patient's son early this morning voicing concerns and requests related to patient's discharge home today. Son stated that he doesn't think patient is stable for discharge due to "dad cannot wipe himself after a #2 and Mom and I can't do it for him." Son voiced concern "that this wasn't addressed while he was in rehab." Son requested copy of patient's medication list, list of restrictions and requested meds be called into [facility] pharmacy instead of [facility]. JAYDE confirmed with son that discharge is planned for today and that his concerns and questions will be forwarded to the team prior to discharge. JAYDE notified Production Aide Brenda. JAYDE met briefly with patient to see if he has any concerns related to discharge. Patient denied any concerns and stated he is waiting on his family to arrive to pick him up. JAYDE confirmed with patient that [facility] will be notified of his discharge. JAYDE sent updated clinicals and discharge orders to [facility] via secure email. Discharge plan: Home with HH
--- NOTE | 2023-11-19 12:12 | NUR ---
WENT OVER DISCHARGE INSTRUCTIONS WITH PATIENT AND FAMILY. PATIENT AND FAMILY VERBALIZED UNDERSTANDING OF INSTRUCTIONS/TEACHING. WAS ABLE TO ANSWER ALL QUESTIONS THEY HAD. PATIENT TAKEN TO EXIT VIA W/C. PERSONAL BELONGINGS LOADED UP WITH PATIENT AND FAMILY. MYSELF AND AIDE ESCORTED PT TO POV AND SON WILL BE DRIVING PT HOME.
--- NOTE | 2023-11-19 15:23 | NUR ---
Discharge QIM scores were reviewed by the team. Code of 6 chosen for rolling left to right was determined by team discussion to be the most usual performance for this patient during the discharge assessment period. Code of 6 chosen for sit to stand was determined by team discussion to be the most usual performance for this patient during the discharge assessment period. Code of 6 chosen for chair to bed was determined by team discussion to be the most usual performance for this patient during the discharge assessment period. Code of 6 chosen for walking 50 feet w/ 2 turns was determined by team discussion to be the most usual performance before interventions for this patient during the discharge assessment period. Code of 6 chosen for walking 150 feet was determined by team discussion to be the most usual performance for this patient during the discharge assessment period.--Brenda Hilario, PD
== END 2023-11-19 12:14 | disposition home health service (06) | DRG 56 ==
PROVIDERS: Internal Medicine; Nurse Practitioner Family; ADMIT Physical Medicine & Rehabilitation Sports Medicine
DX: I69.351 Hemiplegia and hemiparesis following cerebral infarction affecting right dominant side (principal); I21.4 Non-ST elevation (NSTEMI) myocardial infarction; J90 Pleural effusion, not elsewhere classified; I69.391 Dysphagia following cerebral infarction; R13.10 Dysphagia, unspecified; I25.10 Atherosclerotic heart disease of native coronary artery without angina pectoris; R26.89 Other abnormalities of gait and mobility; R53.81 Other malaise; I25.5 Ischemic cardiomyopathy; E11.40 Type 2 diabetes mellitus with diabetic neuropathy, unspecified; I10 Essential (primary) hypertension; E78.5 Hyperlipidemia, unspecified; N40.0 Benign prostatic hyperplasia without lower urinary tract symptoms; Z79.01 Long term (current) use of anticoagulants; D72.829 Elevated white blood cell count, unspecified; D64.9 Anemia, unspecified; Z79.899 Other long term (current) drug therapy; Z74.09 Other reduced mobility; Z79.4 Long term (current) use of insulin; Z95.0 Presence of cardiac pacemaker; Z95.1 Presence of aortocoronary bypass graft; Z86.718 Personal history of other venous thrombosis and embolism; F41.9 Anxiety disorder, unspecified; H53.8 Other visual disturbances; I69.398 Other sequelae of cerebral infarction
CPT/HCPCS: A9284; J1815; J1940